=== PATIENT | female | born 1975 | race Two or more races ===

== ENCOUNTER 2023-01-03 21:08 | Emergency (ER) | payer OTHER ==
[~2023-01-03] VITALS: Ht 162.6 cm; Wt 94.0 kg
[2023-01-04 00:22] VITALS: BP 127/66; PULSE 68; RESP 18; TEMP 98.3; O2SAT 95
[2023-01-04] MEDS ORDERED: KETOROLAC TROMETH 30 MG/ML 1ML VIAL IM ONE (01:00)
== END 2023-01-04 01:25 | disposition home or self-care (01) ==
LOC: ER 21:08
DX: M79.672 Pain in left foot (principal); M79.89 Other specified soft tissue disorders; E78.5 Hyperlipidemia, unspecified; I10 Essential (primary) hypertension; Z90.49 Acquired absence of other specified parts of digestive tract; W22.8XXA Striking against or struck by other objects, initial encounter; Y93.89 Activity, other specified; Y92.89 Other specified places as the place of occurrence of the external cause; Y99.8 Other external cause status
CPT/HCPCS: 73630; 96372; 99283; J1885